=== PATIENT | female | born 1960 | race Hispanic/Latino ===

== ENCOUNTER 2018-11-10 10:30 | Outpatient (CLI) | payer OTHER ==
--- NOTE | 2018-11-10 12:10 | MRI ---
MRI LEFT SHOULDER WITHOUT CONTRAST: HISTORY: M75.102, tear, left rotator cuff. COMPARISON: None. FINDINGS: BICEPS TENDON: Severe extraarticular biceps tenosynovitis. Interstitial tearing, biceps tendon, at the intertrabecular groove. There is perching upon the lesser tuberosity through a tear of the super ior glenohumeral ligament portion of the biceps chandan. The interstitial tearing extends into the in traarticular biceps tendon, up to the superior glenoid tubercle. There are erosions of the lesser tu berosity. LABRUM: There is maceration of the superior labrum. ROTATOR CUFF: There is undersurface partial tearing of the supraspinatus tendon, approximately 30% t o 40%, with sparing of the footprint. This occurs approximately 6 mm from the footprint. Mild tract ion cyst of the greater tuberosity. There is undersurface partial tearing of the supraspinatus tendon, as well as moderate tendinosis. MUSCLES: No significant muscle atrophy. SOFT TISSUES: Moderate subacromial/subdeltoid bursal effusion. IMPRESSION: 1. Severe extraarticular biceps tenosynovitis, as well as interstitial tearing at the intertrabecula r groove. There is perching of the lesser tuberosity through a tear of the superior glenohumeral lig ament portion of the biceps chandan, as well as extension of the interstitial tear intraarticularly. 2. A 30% to 40% undersurface partial tear of the supraspinatus tendon, sparing the footprint. 3. Maceration of the superior labrum. 4. Grade 2 chondromalacia. 5. No significant muscle atrophy. POS: TPC
== END 2018-11-10 10:31 | disposition home or self-care (01) ==
LOC: BICMRI 10:30
PROVIDERS: ATTEND Orthopaedic Surgery
DX: M75.102 Unspecified rotator cuff tear or rupture of left shoulder, not specified as traumatic (principal); M75.112 Incomplete rotator cuff tear or rupture of left shoulder, not specified as traumatic; M75.22 Bicipital tendinitis, left shoulder; M94.212 Chondromalacia, left shoulder

== ENCOUNTER 2018-11-21 07:07 | Outpatient (CLI) | payer OTHER ==
[2018-11-21 09:56] LABS: #Basophils 0.1 thou/uL (0.0-0.2); #Eosinphils 0.3 thou/uL (0.0-0.7); #Lymphocytes 2.7 thou/uL (1.20-3.40); #Monocytes 0.7 thou/uL (0.11-0.59); #Neutrophils 5.3 thou/uL (1.40-6.50); %Basophils 1.4 % (0.0-1.0); %Eosinophils 3.3 % (0.0-10.0); %Lymphocytes 29.5 % (21.0-51.0); %Monocytes 7.1 % (0.0-10.0); %Neutrophils 58.7 % (42.0-75.0); Mean Corpuscular HGB CONC 32.2 g/dL (32.0-36.0); Mean Corpuscular Hemoglobin 29.9 pg (27.0-31.0); Mean Corpuscular Volume 92.7 fL (78.0-98.0); Mean Platelet Volume 7.6 fL (7.4-10.4); Platelet Count 308 thou/uL (130-400); RBC Distribution Width 12.5 % (11.5-14.5); Red Blood Cell (RBC) Count 4.68 mill/uL (4.20-5.40); White Blood Cell (WBC) Count 9.1 thou/uL (4.8-10.8)
[2018-11-21 10:25] LABS: Anion Gap 11 mmol/L (10-20); BUN (Urea Nitrogen) 8 mg/dL (9.8-20.1); Calc. Creatinine Clearance 0 mL/min (70-130); Calcium 10.1 mg/dL (7.8-10.44); Carbon Dioxide 25 mmol/L (22-29); Chloride 106 mmol/L (98-107); Estimated GFR-MDRD Greater than 90; Glucose 81 mg/dL (70-105); Potassium 4.4 mmol/L (3.5-5.1); Sodium 138 mmol/L (136-145)
== END 2018-11-21 07:08 | disposition home or self-care (01) ==
LOC: LABBT 07:07
PROVIDERS: ATTEND Orthopaedic Surgery
DX: Z01.818 Encounter for other preprocedural examination (principal); M75.102 Unspecified rotator cuff tear or rupture of left shoulder, not specified as traumatic
CPT/HCPCS: 80048; 85025; 93005; 93010

== ENCOUNTER 2018-11-22 05:50 | Day surgery (SDC) | payer OTHER ==
[2018-11-21 09:09] VITALS: BMI 21.7
[2018-11-22] MEDS ORDERED: Fentanyl 100 MCG/2 ML VIAL ONE ×2 (06:40→06:59)
[2018-11-22] MEDS ORDERED: Midazolam HCl 2 mg/2 ml Vial ONE (06:40)
[2018-11-22] MEDS ORDERED: Bupivacaine HCl 0.5%/Epinephrine 1:200,000/PF 30 ml Vial ONE (06:46)
[2018-11-22] MEDS ORDERED: Zolpidem Tartrate 5 MG TAB PO PRN (07:22)
[2018-11-22] MEDS ORDERED: Promethazine HCl 25 MG/ML VIAL IM PRN (07:22)
[2018-11-22] MEDS ORDERED: Ropivacaine 0.2% 550 ML 550 ML NERVE BLCK SCH (07:22)
[2018-11-22] MEDS ORDERED: Ondansetron PF 4 MG/2 ML Vial IVP PRN (07:22)
[2018-11-22] MEDS ORDERED: Fentanyl 100 MCG/2 ML VIAL SLOW IVP PRN (07:23)
[2018-11-22] MEDS ORDERED: Ropivacaine 0.5% HCl/PF (150 MG/30 ML VIAL) ONE (11:13)
[2018-11-22] MEDS ORDERED: Ropivacaine 0.2% HCl/PF (40 MG/20 ML VIAL) ONE (11:13)
[2018-11-22] MEDS ORDERED: Ondansetron PF 4 MG/2 ML Vial ONE (12:09)
[2018-11-22] MEDS ORDERED: Dexamethasone 20 MG/5 ML VIAL ONE (12:09)
[2018-11-22] MEDS ORDERED: Ketorolac Tromethamine 30 MG/ML VIAL ONE (12:09)
[2018-11-22] MEDS ORDERED: Glycopyrrolate 0.2 MG/ML 5 ML SYRINGE ONE (12:09)
[2018-11-22] MEDS ORDERED: PROPOFOL 200 MG/20 ML VIAL ONE (12:09)
[2018-11-22] MEDS ORDERED: Rocuronium Bromide 10 MG/ML (10ML VIAL) ONE (12:09)
[2018-11-22] MEDS ORDERED: Lidocaine 1% PF 5 ML VIAL ONE (12:09)
--- NOTE | 2018-11-22 16:22 | OP ---
DATE OF PROCEDURE: 11/22/2018 PREOPERATIVE DIAGNOSES: 1. Left shoulder impingement, partial tears of the supraspinatus as well as top of subscapularis leading to biceps instability. 2. Degenerative superior labral tear. 3. Biceps tendon tearing and instability. POSTOPERATIVE DIAGNOSES: 1. Left shoulder impingement, partial tears of the supraspinatus as well as top of subscapularis leading to biceps instability. 2. Degenerative superior labral tear. 3. Biceps tendon tearing and instability. PROCEDURES PERFORMED: 1. Left shoulder arthroscopy with subacromial decompression. 2. Debridement and shaving of partial tear of the supraspinatus tendon as well as the subscapularis as well as debridement of the superior labral tear. 3. Open biceps tenodesis. HYDROLOGIST: Casper Azar PA-C BLOOD LOSS: Minimal. COMPLICATIONS: None. ANESTHESIA: The patient did have a general anesthetic as well as preoperative block. IMPLANTS: We used a 7 x 23 Bio[employer]posite Bio-Tenodesis screw. DISPOSITION: To go to recovery room in stable condition. INDICATIONS: Shweta is an active female, who comes in complaining of months worth of shoulder pain, which has been unrelenting and have not responded to nonoperative treatment. At this time, she opted for surgery. DESCRIPTION OF PROCEDURE: After all appropriate consent forms were explained and signed, she was taken to the operative room and at this time, she was given a general anesthetic. Once the anesthesia was appropriate, she was rolled into the right lateral decubitus position with all bony problems well padded. Axillary roll was placed underneath the right axilla. A carmona bag was inflated to hold her in this position. The arm was then taken through a full range of motion. The arm was then suspended in 10 pounds in standard arthroscopic fashion. The left shoulder and upper extremity were prepped and draped in surgical fashion. Bony anatomical landmarks were then drawn out and the subacromial space was infiltrated with Marcaine with epinephrine. Posterior portal was then established. Scope was placed into the shoulder joint. Anterior working portal was made using a needle localization technique. Diagnostic arthroscopy commenced in the glenohumeral joint and the articular surface of the glenoid and the humeral head were found to be in excellent condition. There was significant amount of synovitis throughout the glenohumeral joint and this was coagulated as well as debrided. There was a partial undersurface tear of the leading edge of supraspinatus as well as top portion of subscapularis leading to biceps instability. These areas were also debrided with the shaver. There was a degenerative superior labral tear again leading to biceps instability and the biceps tendon itself. Also had some intertendinous tearing prior to its exit out of the shoulder joint. Once all the degenerative labral tear and portions of the rotator cuff were debrided and all the brisk venous bleeding was coagulated. Once this was coagulated using a green cannula anteriorly and an 18-gauge needle, a stitch was placed through the biceps tendon and biceps tendon was then cut off the superior labral insertion using the scissors. We then repositioned the camera into the subacromial space. Lateral working portal was then made. Copious amount of bursa was removed from off the underlying cuff. The cuff was found to be intact. A small subacromial decompression was performed using the SERFAS energy as well as the shaver. At this time, we then removed the camera and drained the shoulder. We then made a longitudinal incision to perform our biceps tenodesis. The skin incision was made with a 15 blade. The Bovie was used to clean any brisk venous bleeding. We then opened our deltoid fascia sharply. We then used finger dissection in-line with the fibers of the deltoid to get down to the underlying transverse humeral ligament. This was opened up. The biceps tendon was pulled out into the wound. It was then sewed. The intra-articular portion was removed sharply. We then placed our pin, reamed with a 7 mm reamer to a depth of 0.5 and placed our 7 x 23 Bio[employer]posite Bio-Tenodesis screw in standard fashion. Sutures were tied over top of this, so the screw could not back out. Once this was done, we thoroughly irrigated and dried this area. We then closed the deltoid fascia with some Vicryl, 2-0 Vicryl and nylon sutures were then used to close the remaining portals as well as the incision. Bulky sterile dressing was applied. She was awakened and taken to recovery room in stable condition. All counts were correct at the end of the case and she received preoperative IV antibiotics. Job ID: [id number]
== END 2018-11-22 10:59 | disposition home or self-care (01) ==
LOC: SDC 05:50
PROVIDERS: ATTEND Orthopaedic Surgery
PROC: 0RNK4ZZ Release Left Shoulder Joint, Percutaneous Endoscopic Approach (ICD-10-PCS; principal; 2018-11-22)
PROC: 0LS20ZZ Reposition Left Shoulder Tendon, Open Approach (ICD-10-PCS; principal; 2018-11-22)
DX: M75.112 Incomplete rotator cuff tear or rupture of left shoulder, not specified as traumatic (principal); S46.112A Strain of muscle, fascia and tendon of long head of biceps, left arm, initial encounter; S43.432A Superior glenoid labrum lesion of left shoulder, initial encounter; Z90.89 Acquired absence of other organs; Z79.899 Other long term (current) drug therapy
CPT/HCPCS: A4306; C1713; J0670; J1100; J1885; J2001; J2250; J2405; J2704; J2795; J3010